=== PATIENT | female | born 1970 | race Caucasian/White ===

== ENCOUNTER 2019-06-21 05:30 | Day surgery (SDC) | payer BC, SELFPAY ==
--- NOTE | 2019-06-14 17:04 | PCM.HP.BLA ---
History and Physical Date of Admission: 06/21/19 Natalie Bill Physician COMMERCIAL ROOFING ESTIMATOR H&P Signed Encounter Date: 06/13/2019 Expand All Collapse All Hide copied text Tien for details Reyna Fernando is a 49 year old female who presents for Pre op visit. Pt is scheduled for TLH, right ovarian cystectomy, possible oophorectomy, bilateral salpingectomy, Cystoscopy for Right dermoid, Pelvic pain, Enlarged uterus, Heavy menses and suspect adenomyosis. Pt offers no concerns today- denies cp, sob, dizziness. Pt with severe right lower back pain- likely from cyst. ? PAST MEDICAL HISTORY PAST MEDICAL HISTORY Diagnosis Date ? Disorders of bilirubin excretion ? ? Gilbert's disease ? Microcalcifications of the breast 08/26/2015 ? left ? Skin cancer (melanoma) (HCC) ? ? PAST SURGICAL HISTORY PAST SURGICAL HISTORY Procedure Laterality Date ? APPENDECTOMY ? 1989 ? BREAST BIOPSY W/STEREOTACTIC GUIDANCE Left 08/26/2015 ? DELIVERY ONLY ? 2002; 1995 ? , low transverse ? ENLARGE BREAST WITH IMPLANT ? 2007 ? Breast augmentation ? PAST SURGICAL HISTORY OF ? 1995 ? Correction of 4 th degree laceration and epis repair redo ? PAST SURGICAL HISTORY OF ? 2014 ? melanoma excised from right upper arm ? REMOVAL OF TONSILS,<12 Y/O ? ? ? Tonsillectomy ? FAMILY HISTORY FAMILY HISTORY Problem Relation Age of Onset ? Thyroid Mother ? ? Diabetes Paternal Grandmother ? ? Heart Other ? ? paternal GF ? other (obesity) Other ? ? paternal aunts ? Hypertension Father ? ? SOCIAL HISTORY Social History ? Tobacco Use ? Smoking status: Never Smoker ? Smokeless tobacco: Never Used Substance Use Topics ? Alcohol use: Not Currently ? ? Alcohol/week: 10.0 standard drinks ? ? Types: 4 Glasses of Wine (5oz) per week ? Drug use: No ? CURRENT MEDICATIONS Current Outpatient Medications Medication Sig ? ibuprofen (MOTRIN) 600 mg tablet Take 1 tablet by mouth every 6 hours as needed. FOR PAIN. ? cyanocobalamin, vitamin B-12, (VITAMIN B-12 ORAL) Take by mouth. ? psyllium husk (METAMUCIL ORAL) Take by mouth. ? THERAPEUTIC MULTIVITAMIN TAB one tab daily ? cyclobenzaprine (FLEXERIL) 10 mg tablet Take 1 tablet by mouth three times daily as needed. ? oxyCODONE immediate release (PERCOLONE) 5 mg immediate release tablet Take 1 tablet by mouth every 8 hours as needed for up to 20 days. ? ibuprofen (MOTRIN) 600 mg tablet Take 1 tablet by mouth every 6 hours as needed. ? acetaminophen (TYLENOL EXTRA STRENGTH) 500 mg tablet Take 2 tablets by mouth every 6 hours as needed. FOR PAIN. ? simethicone, chewable (MYLICON) 80 mg chewable tablet Take 1 tablet by mouth every 6 hours as needed. ? docusate sodium (COLACE) 100 mg capsule Take 1 capsule by mouth twice daily. ? No current facility-administered medications for this visit. ? Allergies As of Date: 06/13/2019 (No Known Allergies) Fully Assessed 06/13/2019 ? ? REVIEW OF SYSTEMS Abdomen: no pain Bladder: no dysuria .. Expanded ROS: GENERAL: Negative for fever Allergies and current medication updated:Yes ? EXAM: BP 118/68 Ht 5' 4.5 (1.64m) Wt 207 lb (93.9kg) LMP 05/30/2019 BMI 35.00 kg/(m^2). ? GENERAL: pleasant, female in no apparent distress HEENT: Normocephalic and atraumatic NECK: full range of motion DERMATOLOGY: Normal, without lesions, non-icteric and non-hirsute CARDIAC: regular rate and rhythm. Lungs: Clear bilaterally to auscultation. NEURO: alert and oriented x3,exam grossly non-focal EXTREMITIES: normal ? ASSESSMENT AND PLAN: Encounter Diagnosis ? ? ICD-10-CM ? 1. Post-op pain G89.18 oxyCODONE immediate release (PERCOLONE) 5 mg immediate release tablet 2. Pelvic pain in female R10.2 cyclobenzaprine (FLEXERIL) 10 mg tablet ? 3. Pt has been counseled on risks/benefits and alternatives of surgery including but not limited to anesthesia, bleeding, infection, injury to pelvic structures including bowel, bladder, ureters and vessels. Pt wishes to proceed with surgery at this time. 4. ERAS protocol reviewed 5. POST OP MEDS GIVEN 6. CA125 done previously was 14. Ultrasound shows 3 cm dermoid ? ? Natalie Hernandez MD ?
[2019-06-21] VITALS (8 sets, daily range): BP systolic 114–146; BP diastolic 71–87; PULSE 72–109; RESP 14–18; TEMP 36.7–36.9; O2SAT 98–100; BMI 34.2
[2019-06-21 06:11] LABS: Internal QC Validated? YES +Cl - CLEAR BKGD; Pregnancy, Urine Negative Negative
[2019-06-21 06:16] LABS: Hematocrit 32.9 % (37-47); Hemoglobin 10.3 g/dL (12.0-15.0); Mean Corp Hgb Conc 31.3 g/dL (32-36); Mean Corpuscular Hgb 25.2 pg (27.0-32.0); Mean Corpuscular Volume 80.4 fL (81-99); Mean Platelet Vol. 10.3 fl (6.2-12.0); Platelet Count 418 K/mm3 (150-450); RBC Distribution Width CV 15.1 % (11.6-14.6); RBC Distribution Width SD 43.7 fl (35.1-43.9); Red Blood Count 4.09 M/mm3 (4.2-5.4); White Blood Count 8.8 K/mm3 (4.4-11.0)
[2019-06-21] MEDS: Lactated Ringers 1,000 ML 70 ML IV ×2 (06:27→08:59)
--- NOTE | 2019-06-21 07:30 | OV_PTH ---
PATIENT: MARKEL BARKER LOC: [facility] [place] U#:[id number] AGE/SX: 49/F ROOM: RE06/21/[address]: Dr. Natalie Hernandez, MDDOB: 1970 BED: DIS: 06/21/2019 SPEC #: [id number] RECD: 06/21/19 10:23 STATUS: JUDIE NATALIE #: [id number] DEMI: 06/21/19 07:[address]: Natalie Hernandez DEPT: SURGICAL PATHOLOGY RECD BY: Jama Muñoz ENTERED: 06/21/19 10:30 SP TYPE: OVARY OTHR DR: Dr. Aniyah Campos MD Tissues: Right ovary Procedures: Surgery Specimen Level IV HEADER OPERATION: Bilateral salpingectomy, right ovarian cystectomy, right oophorectomy PRE-OP DIAGNOSIS: Pelvic pain TISSUE SUBMITTED: Bilateral tubes and right ovary MICROSCOPIC DIAGNOSIS Bilateral fallopian tubes and right ovary, bilateral salpingectomy and right oophorectomy: Right ovary - mature cystic teratoma, dermoid cyst (6 cm in greatest dimension). Bilateral fallopian tubes - no pathologic diagnosis. BETO:karina 06/22/19 MICROSCOPIC DESCRIPTION Slides are reviewed. GROSS DESCRIPTION Received is one container labeled with the patient's name and designated bilateral fallopian tubes and right ovary. The specimen consists of bilateral fallopian tubes including fimbrial ends and cystic ovary identified as right. The fallopian tubes measure 6 cm in length and 0.6 cm in diameter and 4.5 cm in length and 0.7 cm in diameter. The fallopian tubes are not identified as right or left. Sections reveal unremarkable cut surfaces. Also present in the container are three detached pieces of biswas soft tissue measuring in aggregate 3 x 1 x 0.5 cm. The soft to cystic ovary measures 6 x 5 x 4 cm and weighs 34 gm. It partially appears to be ruptured. The external surface is inked black. Sections of the cystic ovary reveal the entire cyst is filled with yellowish-clemens sebum-like material with focal solid area. The largest solid area measures 1 cm in greatest dimension. The cyst wall measures up to 0.1 to 0.2 cm in thickness. Sas Statistical Programmer sections are submitted in six cassettes as follows: 1 & 2 - bilateral fallopian tubes with each cassette containing one fallopian tube, 3 - detached pieces of tissue, 4-6 - cystic ovary (4 contains the solid area). / Fernando 06/21/19 TC:1 CPT: 30079
[2019-06-21] MEDS: Lubricating Jelly 60 GM Tube 30 GM TOPICAL (07:50)
[2019-06-21] MEDS: Bupivacaine Mpf 0.5% 30 ML VIAL (08:00)
--- NOTE | 2019-06-21 08:15 | OP.PCM_ITS ---
Report of Operation Date of Procedure: 06/21/19 Pre-Operative Diagnosis: Pelvic pain, right ovarian dermoid cyst Post-Operative Diagnosis: same Surgery/Procedure Performed:: Laparoscopic Right salpingoophorectomy, left salpingectomy Description of Surgical Findings:: Right ovarian cyst encapsulating entire ovary. Both tubes appear normal. left ovary with tiny simple appearing cyst. Uterus with dense adhesions to anterior abdominal wall. supervisor color making: Virginia Bronson Type of Anesthesia:: General Special Medications: .5% marcaine Specimen's removed: Right tube and ovary, Left tube Drains: None Estimated Blood Loss (mL): 5 Fluids Replaced: 1200 Description of Procedure: After informed consent was obtained patient was taken to the operating room she was placed in supine position she was given anesthesia. She was then placed in the [facility] stirrups and she was prepped and draped in normal sterile fashion. Bladder was drained prior to the start of procedure approximately 100cc of clear yellow urine was expelled. At this time attention was turned to the vaginal portion where weighted speculum placed at posterior fornix vagina single-tooth tenaculum was used to gently grasp the anterior - unable to sound uterus due to stenosis. Uterine manipulator was placed without difficulty. Legs then placed in parallel with the abdomen the tenaculum and the weighted speculum were removed. 2 towel clamps were placed at the umbilicus. After Marcaine was injected a small incision was made and a 5 mm trocar was placed under direct visualization. CO2 gas was used to insufflate the intra-abdominal cavity. Upon inspection right ovarian cyst noted and left ovary with small simple appearing cyst. both tubes appear normal. At this time then the RLQ and LLQ ports were placed again Marcaine was injected small incision was made a knife and the 5 mm trocar was placed. At this time then tubes were traced back to the fimbriated ends. Ligasure was used to coagulate and ligate along IP ligament on the right, uterovarian and the mesosalpynx until ovary and tube removed completely. The Left side, fimbriated end was grasped and the ligasure was used to coagulate and ligate along mesosalpinx until tube removed completely. Good hemostasis was appreciated. The LLQ port was extended and endocatch bag placed- specimens collected and removed. The douglas clements was then used to closed fascia of LLQ port incision using 0-vicryl sutre. At this time procedure was deemed complete successful. The gas was desufflated on from the intra-abdominal cavity. The trochars were removed. Skin was closed using 4-0 Monocryl in a subcutaneous fashion. Dermabond glue was placed. Instrument lap and needle counts were correct ?2. The uterine manipulator was removed. Vaginal sweep was performed it was negative. There were no complications anticipated normal postoperative course for this patient. Grafts/Implants Used: none - Complications none - Admit VTE Documentation VTE Present on Admission: No VTE Mechan Device Prophylaxis: SCD's VTE Pharm Prophylaxis ordered?: No Reason prophylaxis not ordered:: Treatment Not Indicated
--- NOTE | 2019-06-21 08:23 | DCINST_ITS ---
Discharge Diet: No Restrictions, - - Increase fluid intake for 48 hours. Discharge Activity: Return to Normal Activity, May Drive - when you are no longer taking narcotic pain medications., May Shower, May Take a Tub Bath - in 7 days., - - Ambulate often the next week after surgery. May resume sexual activity in: 2 weeks Lifting Restrictions: 25 Additional Activity Instructions:: Nothing in the vagina for the next 5 days. Call your doctor if your incision/area has: Continuous Slow Oozing, Sudden Increased Bleeding, Increased Pain/ Swelling, Increased Redness, Foul Smelling Discharge, Swelling at the incision site Call your doctor if you observe: Fever of 101 or Higher, Uncontrolled pain Cleanse incision/area with: - - do not pick off skin glue- you may shower, let soap and water run over incision sites and dab dry. Allergies/Adverse Reactions: Allergies No Known Allergies Allergy (Verified 06/21/19 06:01) Medications to take at Discharge Cyanocobalamin (Vitamin B-12) [Vitamin B-12] 1,000 mcg PO DAILY 06/14/19 Ibuprofen [Motrin] 600 mg PO Q6H PRN PRN 06/14/19 Multivitamin [Daily Multiple Vitamin] 1 ea PO DAILY 06/14/19 Psyllium Husk [Metamucil] 0.52 gm PO DAILY 06/14/19 cycloBENZAPRine HCl [Flexeril] 10 mg PO TID PRN PRN 06/14/19 Primary Care Physician: Aniyah Campos MD [Primary Care Provider] - Test Results: Test results from this visit will be discussed in further detail at your follow- up appointment, if applicable. Please Follow Up With: Natalie Hernandez MD When: as scheduled in 2 weeks
[2019-06-21] MEDS: HYDROcodone Bitartrate/Apap 5/325 Tablet PO (10:15)
== END 2019-06-21 12:28 | disposition home or self-care (01) ==
LOC: SDC 05:35 → AC 05:35
PROVIDERS: Anesthesiology; PCP Internal Medicine; Referring Provider Obstetrics & Gynecology; Visit Provider Obstetrics & Gynecology
PROC: (CPT 58661; principal; 2019-06-21 07:15)
DX: D27.0 Benign neoplasm of right ovary (principal); E80.4 Gilbert syndrome; Z85.820 Personal history of malignant melanoma of skin
CPT/HCPCS: 00840; 58661; 36415; 81025; 85027; 86850; 86900; 86901; 88305; J7120; J2405

== ENCOUNTER 2019-09-02 09:14 | Emergency (ER) | payer BC, SELFPAY ==
[2019-06-21 06:01] VITALS: BMI 34.2
[2019-09-02 09:15] VITALS: BP 155/117; PULSE 110; RESP 20; TEMP 36.7; O2SAT 97; BMI 36.4
--- NOTE | 2019-09-02 09:31 | CT_ITS ---
STUDY: CT ABDOMEN AND PELVIS WITHOUT CONTRAST REASON FOR EXAM: Female, 49 years old. RIGHT FLANK PAIN STARTED AFTER SURG PROGRESSIVELY GETTING WORSE -- SURG-OOPHRECTOMY W/ OVARIAN CYST and amp; FALLOPIAN TUBES REMOVED 06/2019 RADIATION DOSAGE (If Supplied By Facility): CTDIvol = ( 14.50 ) mGy, DLP = ( 804.18 ) mGycm TECHNIQUE: Transaxial images were obtained from the dome of the diaphragm to the symphysis pubis without oral contrast, and without intravenous contrast. Sagittal and coronal images were reconstructed. Individualized dose optimization techniques were used for this CT. COMPARISON: None. FINDINGS: The visualized lung bases are unremarkable. The visualized portions of the heart are within normal limits. Normal liver. Cholelithiasis. No significant dilatation of the extrahepatic biliary system. Normal spleen. Normal pancreas. Normal bilateral adrenal glands. Normal right kidney. Normal left kidney. Normal visualized stomach. Normal small intestine. Mild fecal retention diffusely in the colon. The appendix is not visualized. Normal abdominal aorta. Normal inferior vena cava. Normal retroperitoneum. Normal urinary bladder. Small fatty umbilical hernia. Normal osseous structures. CT/Abdomen/Pelvis without Cont IMPRESSION: Cholelithiasis. Mild colonic fecal retention. Small fatty umbilical hernia. Electronically Signed: Ugo Molina DO at 10:11 EDT Tel [phone], Service support ,
--- NOTE | 2019-09-02 09:32 | ED.VIS.GEN ---
History of Present Illness Chief Complaint: Back Informant: Patient Onset: Month(s) Context: Gradual Onset Timing: Waxes and wanes Current Severity: Moderate Maximum Severity: Severe Narrative: Patient presents secondary to right lower back pain. Patient had surgery in June to have an ovary and ovarian cyst removed along with fallopian tubes. She states since that time she has had pain in her right lower back. She has tried stretching and yoga. Over the past several days pain has gotten worse. Nursing staff did document she had loss of bladder control yesterday, however when asking her about this further she states that she had the urge to go but could not move fast enough to get to the bathroom. She has significant pain when trying to bend. Pain does not radiate down her leg. She has no paresthesias. She denies any falls or trauma to her back. Past Medical History - Allergies and Home Meds Allergies/Adverse Reactions: Allergies No Known Allergies Allergy (Verified 09/02/19 09:17) Primary Care Physician: Aniyah Campos MD [Primary Care Provider] - Prior records reviewed: Yes Surgical History: - - Salpingectomy Lives: Spouse/ Significant Other Smoking Status: Never smoker Review of Systems General: Denies: Chills, Fever Eyes: Denies: Visual changes - bilaterally ENT: Denies: Bilateral ear pain Cardiovascular: Denies: Chest pain Respiratory: Denies: Dyspnea, Cough Gastrointestinal: Denies: Abdominal pain, Nausea, Vomiting, Diarrhea Genitourinary: Denies: Dysuria Musculoskeletal: Reports: Back pain. Denies: Extremity Pain Skin: Denies: Rash Neurological: Denies: Headache Hematologic: Denies: Easy bruising, Easy bleeding Allergy: Denies: Uticaria Physical Exam Vital Signs/Narrative: Vital Signs Temp Pulse Resp BP Pulse Ox 09/02/19 09:15 98.0 F 110 H 20 H 155/117 H 97 Inital Vital Signs reviewed: Yes General: Well nourished, Well developed Head: Normocephalic ENT: Moist mucous membranes Neck: Supple Cardiovascular: Regular rate, Regular rhythm Respiratory: No distress, CTA bilaterally Abdomen: Soft, Nontender Back: - - Mild tenderness in the right lumbar paraspinal muscles. No midline tenderness. Extremities: Nontender Skin: Normal color Neurological: Alert, Oriented x3, Normal Strength, Normal Sensation Psychological: Normal affect Diagnostic/Tx/Re-eval Impressions Abdomen/Pelvis CT 09/02/19 09:31 IMPRESSION: Cholelithiasis. Mild colonic fecal retention. Small fatty umbilical hernia. Electronically Signed: Ugo Molina DO at 10:11 EDT Tel [phone], Service support , 09/02/19 09:31 Abdomen/Pelvis without Cont [CT] Stat Laboratory Results 09/02/19 09:40 Urine Color Yellow Urine Clarity Sl. Cloudy Urine pH 5.0 Ur Specific Nov[place] 1.030 Urine Protein 15 H Urine Glucose (UA) Normal Urine Ketones 5 H Urine Occult Blood 10 H Urine Nitrite Negative Urine Bilirubin 1 H Urine Urobilinogen 1 H Ur Leukocyte Esterase 25 H Urine RBC 0 SEEN Urine WBC 0-5 SEEN Ur Squamous Epith Cells 0-5 SEEN Calcium Oxalate Crystal RARE Urine Bacteria RARE Urine Mucus 0 SEEN - Medical Decision Making Patient was given [place] and Flexeril. On repeat evaluation she is noting some improvement in her symptoms. She will be given prescriptions for the same and is to continue taking Aleve. She had taken Aleve 2 to 3 hours prior to arrival. Patient was given instructions on stretching. She will be given prescriptions for [place] and Flexeril. ED Disposition - Plan for ED Patient: Disposition: Home or Assisted Living Diagnosis: Lumbar paraspinal muscle spasm Instructions: ED SPASM Muscle, ED Back Pain Acute or Chronic Prescriptions: cycloBENZAPRine HCl [Flexeril] 10 mg PO TID PRN #20 tab PRN Reason: Muscle Spasm Transmission Status: Pending to [facility] Hydrocodone Bitart/Apap 5-325 [[place] 5MG-325MG] 1 tablet PO Q6H PRN PRN 3 Days #10 tablet PRN Reason: Pain Transmission Status: Sent to [facility] Referrals: Aniyah Campos MD [Primary Care Provider] - 5-7 Days
[2019-09-02] MEDS: cycloBENZAPRine HCl 10 MG Tablet PO (09:42)
[2019-09-02] MEDS: HYDROcodone Bitartrate/Apap 5/325 Tablet PO (09:42)
[2019-09-02 09:47] LABS: Mucous, Urine 0 SEEN /hpf (<or=2+); Red Blood Cells-Urine 0 SEEN /hpf (0-5)
[2019-09-02 10:03] LABS: Color, Urine Yellow (Yellow); Glucose, Dipstick Normal (Normal); Ketone-Dipstick 5 mg/dl (Negative); Leukocyte Esterase-Dipstick 25 /ul (Negative); Nitrite-Dipstick Negative (Negative); Occult Blood-Urine 10 /ul (Negative); Protein-Dipstick 15 mg/dl (Negative); Urine Clarity Sl. Cloudy (Clear); Urine Urobilinogen 1 mg/dl (Normal)
[2019-09-02 10:10] LABS: Bacteria RARE /hpf (None Seen); Calcium Oxalate Crystals Ur RARE /hpf (<or=2+); Squamous Epithelial Cells - UA 0-5 SEEN /hpf (5-10); Urine Bilirubin Dipstick 1 mg/dL (Negative); White Blood Cells 0-5 SEEN /hpf (0-5)
[2019-09-02 10:44] VITALS: BP 130/74; PULSE 76; RESP 16; O2SAT 98
== END 2019-09-02 10:45 | disposition home or self-care (01) ==
PROVIDERS: Emergency Provider Emergency Medicine; PCP Internal Medicine
DX: M62.830 Muscle spasm of back (principal); K80.20 Calculus of gallbladder without cholecystitis without obstruction; K42.9 Umbilical hernia without obstruction or gangrene
CPT/HCPCS: 74176; 81001; 99283

== ENCOUNTER → 2022-11-08 | Outpatient (CLI) | payer BC, SELFPAY ==
[2022-11-08 12:21] LABS: Absolute Lymphocyte Count 2.32 X10^3/uL (0.83-4.51); Absolute Neutrophil Count 4.2 X10^3/uL (2.0-7.7); Basophil# 0.07 X10^3/uL; Eosinophil# 0.16 X10^3/uL; Eosinophils% 2.2 % (0-5); Hematocrit 43.3 % (37-47); Hemoglobin 14.2 g/dL (12.0-15.0); Lymphocyte # 2.32 X10^3/ul (0.83-4.51); Lymphocyte % 31.8 % (19-41); Mean Corp Hgb Conc 32.8 g/dL (32-36); Mean Corpuscular Hgb 29.1 pg (27.0-32.0); Mean Corpuscular Volume 88.7 fL (81-99); Mean Platelet Vol. 10.2 fl (6.2-12.0); Monocyte# 0.49 X10^3/uL; Monocyte% 6.7 % (0-10); NRBC Flagged by Analyzer 0 % (0-5); Neutrophil # 4.23 X10^3/uL (2.7-7.7); Platelet Count 346 K/mm3 (150-450); RBC Distribution Width CV 13.2 % (11.6-14.6); RBC Distribution Width SD 42.9 fl (35.1-43.9); Red Blood Count 4.88 M/mm3 (4.2-5.4); White Blood Count 7.3 K/mm3 (4.4-11.0)
[2022-11-08 12:59] LABS: Vitamin D,25 Hydroxy 30.8 ng/mL
[2022-11-08 13:39] LABS: Anion Gap 6 (5-15); BUN 10 mg/dL (7-18); BUN/Creat Ratio 12.7 RATIO (10-20); Calcium,Total 9.6 mg/dL (8.5-10.1); Chloride 108 mmol/L (98-107); Cholesterol 172 mg/dL (200); Creatinine, Serum 0.79 mg/dL (0.55-1.02); EST Glomerular Filtration Rate 82 mL/min (>60); Est Glom Filt Rate - Afr Amer 100 mL/min (>60); Glucose 116 mg/dL (74-106); High Density Lipoprotein 44 mg/dL; Potassium 4.1 mmol/L (3.5-5.1); Sodium Level 138 mmol/L (136-145); Thyroid Stim Hormone (TSH) 1.21 uIU/mL (0.358-3.74); Triglycerides 171 mg/dL; Very Low Density Lipoprotein 34 mg/dL (5-40)
== END | disposition home or self-care (01) ==
LOC: MFPLAB 10:50
PROVIDERS: PCP Internal Medicine; Visit Provider Family Medicine
DX: Z00.00 Encounter for general adult medical examination without abnormal findings (principal); R53.83 Other fatigue; I10 Essential (primary) hypertension
CPT/HCPCS: 36415; 80048; 80061; 82306; 84443; 85025

== ENCOUNTER → 2022-12-31 | Outpatient (CLI) | payer BC, SELFPAY ==
--- NOTE | 2022-12-31 11:40 | RAD_ITS ---
INDICATION: CHEST PAIN EXAMINATION/TECHNIQUE: X-RAY - XR Chest 2 Views COMPARISON: No relevant prior comparison study available FINDINGS: LINES/DEVICES: None. LUNGS: No consolidation, edema or effusion. No pneumothorax. MEDIASTINUM AND CARDIOVASCULAR STRUCTURES: Cardiac silhouette not enlarged. Central airways and mediastinal contour are unremarkable. BONES AND SOFT TISSUES: Unremarkable. RAD/Chest PA and Lateral IMPRESSION: No radiographic evidence of acute cardiopulmonary disease. Electronically Signed: Joseluis Guaman MD at 12:03 EDT ,
== END | disposition home or self-care (01) ==
LOC: MTRAD 11:39
PROVIDERS: PCP Family Medicine; Referring Provider Internal Medicine Pulmonary Disease; Visit Provider Internal Medicine Pulmonary Disease
DX: R07.9 Chest pain, unspecified (principal)
CPT/HCPCS: 71046

== ENCOUNTER → 2023-11-07 | Outpatient (CLI) | payer BC, SELFPAY ==
[2023-11-07 16:14] LABS: ALB/GLOB Ratio 1.1 RATIO (0.9-2.4); AST(SGOT) 20 U/L (15-37); Alanine Aminotransfer ALT/SGPT 45 U/L (13-56); Alkaline Phosphatase 112 U/L (45-117); Anion Gap 7 (5-15); BUN 13 mg/dL (7-18); Chloride 103 mmol/L (98-107); Cholesterol 204 mg/dL (200); Creatinine, Serum 0.76 mg/dL (0.55-1.02); EST Glomerular Filtration Rate 85 mL/min (>60); Est Glom Filt Rate - Afr Amer 102 mL/min (>60); Globulin 3.8 g/dL (2.2-4.2); Glucose 120 mg/dL (74-106); High Density Lipoprotein 45 mg/dL; Potassium 4.3 mmol/L (3.5-5.1); Protein, Total 7.8 g/dL (6.4-8.2); Sodium Level 136 mmol/L (136-145); Triglycerides 138 mg/dL; Very Low Density Lipoprotein 28 mg/dL (5-40)
[2023-11-07 16:55] LABS: Vitamin D,25 Hydroxy 35.4 ng/mL
== END | disposition home or self-care (01) ==
LOC: MFPLAB 11:29
PROVIDERS: PCP Family Medicine; Visit Provider Family Medicine
DX: Z00.00 Encounter for general adult medical examination without abnormal findings (principal)
CPT/HCPCS: 36415; 80053; 80061; 82306